=== PATIENT | female | born 1985 | race Caucasian/White ===

== ENCOUNTER → 2017-09-17 09:41 | Outpatient (CLI) | payer MEDICAID ==
[2014-06-21 07:02] VITALS: BMI 33.1
[~2017-09-17 09:41] MED LIST: COLACE100 MG PO; EPIFOAM10 GM TOPICAL; IBUPROFEN600 MG PO; PERCOCET 5-3251 TAB PO; PRENATAL COMPLE1 TAB PO
== END | disposition home or self-care (01) ==
LOC: D.LDO 09:41
DX: O40.9XX0 Polyhydramnios, unspecified trimester, not applicable or unspecified (principal); Z3A.00 Weeks of gestation of pregnancy not specified

== ENCOUNTER → 2017-09-21 10:03 | Outpatient (CLI) | payer MEDICAID ==
[2014-06-21 07:02] VITALS: BMI 33.1
== END | disposition home or self-care (01) ==
LOC: D.LDO 10:03
DX: O40.9XX0 Polyhydramnios, unspecified trimester, not applicable or unspecified (principal); Z3A.00 Weeks of gestation of pregnancy not specified

== ENCOUNTER 2017-09-23 11:54 | Inpatient (IN) | payer MEDICAID ==
[~2017-09-23] VITALS: Ht 154.9 cm; Wt 93.2 kg
--- NOTE | ~2017-09-23 | OP ---
PATIENT NAME: JIM GIRON MEDICAL RECORD: [id number] :85 LOCATION:[id number] ADMISSION DATE:09/23/17 SURGEON: ROBERT DAY MD DATE OF OPERATION: 09/24/2017 PREDELIVERY DIAGNOSES: 1. Polyhydramnios at term. 2. at 38 weeks and 1 day gestation. POSTDELIVERY DIAGNOSES: 1. Polyhydramnios at term. 2. Mother delivered at 38 weeks and 1 day. PROCEDURE: Induction of labor with vaginal delivery. ATTENDING: Robert Day MD ANESTHESIOLOGIST: Albino Gabriel MD ANESTHETIC: Continuous lumbar and epidural. FINDINGS: Viable female infant, ROSEMARIE presentation, Apgars are 7 and 8, weight is 3310 grams. Second degree laceration of the perineal body and first-degree laceration of the vaginal vault. Repair affected with three 3-0 chromic and one 2-0 chromic. Placenta spontaneous and intact. EBL was 375cc. DISPOSITION: Mother and infant recovered in the room. TRANSINT:[id number] Voice Confirmation ID: [id number] DOCUMENT ID: [id number] ROBERT DAY MD at 0926 CC: [id number] DICTATION DATE: 09/24/17 1440 HUMAN RESOURCES ADMINISTRATOR: 09/24/17 1455 DIS IN 09/26/[address] [address]
--- NOTE | ~2017-09-23 | DS ---
PATIENT:JIM GIRON :85 MEDICAL RECORD: [id number] DISCHARGE SUMMARY ADMISSION DATE: 09/23/17 DISCHARGE DATE: 09/26/17 The patient was admitted on 09/23/[address] Robert Mosley. A 32-year-old G3, P1 at 38 weeks. HOSPITAL COURSE: The patient was admitted for induction of labor for polyhydramnios at term. The patient was A positive, group B strep negative. Per the record, the patient with a medical history significant for gastroesophageal reflux disease. No surgeries. No allergies. FAMILY HISTORY: The patient reported a family history significant for cardiovascular disease, diabetes and cancer in a parent. SOCIAL HISTORY: The patient reported social history negative times 3. PHYSICAL EXAMINATION: Per the initial assessment on the chart; VITAL SIGNS: Stable. LUNGS: Clear to auscultation. ABDOMEN: Soft, nontender. HEART: Regular rate and rhythm. EXTREMITY ASSESSMENT: Nontender without edema. ASSESSMENT AND PLAN: Oligohydramnios at term. PLAN: Induction of labor. The patient was started on Pitocin. Artificial rupture of membranes was performed with fluid clear. The patient progressed to the second stage of labor and was delivered by Dr. Mosley. I assumed care on day #1. The patient was doing well. Vital signs are stable. The patient was afebrile. Uterus was infraumbilical and nontender, minimal lochia, tolerating general diet and p.o. pain meds, ambulating and voiding freely. On the morning of day #2, status post normal spontaneous vaginal delivery, the patient continued to do well. Vital signs stable, afebrile. Uterus is infraumbilical and nontender. The patient reports minimal lochia. The patient was discharged home on day #2 with instructions to follow up with Dr. Mosley per his instructions. TRANSINT:[id number] Voice Confirmation ID: [id number] DOCUMENT ID: [id number] KAREL AGEE MD CC: [id number] DICTATION DATE: 10/17/17 0657 ROUGH PLANER TENDER: 10/17/17 1548 DIS IN 09/26/17 [id number] [place] [address]
[2017-09-23 23:05] LABS: APPEARANCE CLEAR (CLEAR); BILIRUBIN NEGATIVE (NEGATIVE); COLOR YELLOW (YELLOW); GLUCOSE 100 mg/dL (NEGATIVE); HEMATOCRIT 34.5 % (36.0-48.0); HEMOGLOBIN 11.5 g/dL (12-16); KETONE NEGATIVE (NEGATIVE); MCHC 33.3 g/dL (31.0-37.0); MCV 87.1 fL (80.0-100.0); NITRITE NEGATIVE (NEGATIVE); PROTEIN NEGATIVE (NEGATIVE); RBC 3.96 10x6/uL (4.00-5.40); RDW 14.2 % (11.5-14.5); UROBILINOGEN NORMAL (NORMAL); WBC 9.6 10x3/uL (4.8-10.8)
[2017-09-23 23:40] VITALS: BP 130/82; Ht 154.9 cm; Wt 93.2 kg
[2017-09-25 04:08] VITALS: BP 144/70
[2017-09-25 05:15] LABS: RAPID PLASMA REAGIN Non Reactive (Non Reactive)
[2017-09-25 09:08] VITALS: BP 123/65
[2017-09-25 19:46] VITALS: BP 142/76
[2017-09-26 07:21] VITALS: BP 118/67
== END 2017-09-26 16:26 | disposition home or self-care (01) | DRG 775 ==
LOC: D.LD 11:54
PROVIDERS: Obstetrics & Gynecology
PROC: 10907ZC Drainage of Amniotic Fluid, Therapeutic from Products of Conception, Via Natural or Artificial Opening (ICD-10-PCS; principal; 2017-09-24)
PROC: 10E0XZZ Delivery of Products of Conception, External Approach (ICD-10-PCS; 2017-09-24)
PROC: 0KQM0ZZ Repair Perineum Muscle, Open Approach (ICD-10-PCS; 2017-09-24)
DX: O40.3XX0 Polyhydramnios, third trimester, not applicable or unspecified (principal); Z3A.38 38 weeks gestation of pregnancy; Z37.0 Single live birth; O70.1 Second degree perineal laceration during delivery

== ENCOUNTER 2020-05-14 13:14 | Outpatient (CLI) | payer MEDICAID ==
[2017-09-23 23:40] VITALS: BMI 38.8
== END 2020-05-14 14:58 | disposition home or self-care (01) ==
LOC: D.LDO 13:14
PROVIDERS: ATTEND Obstetrics & Gynecology
DX: O30.90 Multiple gestation, unspecified, unspecified trimester (principal)